=== PATIENT | female | born 1955 | race Caucasian/White ===

== ENCOUNTER 2021-08-12 12:38 | Observation (INO) ==
[2021-08-12] MEDS ORDERED: KETOROLAC TROMETHAMINE 15 MG/ML VIAL IV ONE ×2 (13:02→13:14)
[2021-08-12 13:08] LABS: Basophils # (auto) 0.02 K/uL (0-0.2); Basophils % (auto) 0.3 %; Eosinophils # (auto) 0.02 K/uL (0-0.5); Eosinophils % (auto) 0.3 %; Hematocrit (blood only) 42.1 % (37-47); Hemoglobin 14.5 g/dL (12.0-16.0); Immature Granulocytes # (auto) 0.01 K/uL (0.00-0.02); Immature Granulocytes % (auto) 0.2 %; Lymphocytes # (auto) 0.69 K/uL (1.2-3.4); Lymphocytes % (auto) 10.7 %; Mean Corpuscular Hgb Conc 34.4 g/dL (32-36); Mean Corpuscular Volume 92.9 fL (80-100); Mean Platelet Volume 11.2 fL (7.4-10.4); Monocytes # (auto) 0.08 K/uL (0.11-0.59); Monocytes % (auto) 1.2 %; Neutrophils # (auto) 5.64 K/uL (1.4-6.5); Neutrophils % (auto) 87.3 %; Platelet Count 174 K/uL (130-400); RDW Coefficient of Variation 12.2 % (11.5-14.5); RDW Standard Deviation 41.1 fL (36.4-46.3); Red Blood Count 4.53 M/uL (4.2-5.4); White Blood Count 6.46 K/uL (4.8-10.8)
--- NOTE | 2021-08-12 13:08 | Emergency Department Note ---
Impression & Plan Chest pain, RBBB ED Provider Note NAME: CHRISTAL GARCIA AGE: 66 SEX: F : 1955 ARRIVES VIA: Ambulance INFORMANT: Patient ED PROVIDER(S): Joce Meeks DO CHIEF COMPLAINT: chest pain HPI: Patient is a 66-year-old female with a past medical history of hypertension and hyperlipidemia that presents to the ER postop from general anesthesia from [facility] outpatient [facility]. She was having right foot surgery which include a cyst removal and some removal of some bone spurs. When she woke up she was having some sharp midsternal chest pain. She denies any shortness of breath arm or jaw pain. She was given nitro and improved. She was also given some fentanyl which helped out as well. Currently only a 2-3 out of 10. Denies any belly pain, nausea, vomiting, or diarrhea. No dysuria, urgency, or frequency. No other exacerbating or remitting factors. She follows with [facility] cardiology previously. ROS: See above HPI for pertinent positives & negatives. A total of 10 systems reviewed and were otherwise negative. PAST MEDICAL HISTORY:See Below PAST SURGICAL HISTORY:See Below FAMILY HISTORY:See Below SOCIAL HISTORY:See Below HOME MEDICATIONS:See Below ALLERGIES:See Below VITALS:See Below PHYSICAL EXAMINATION: GENERAL: Sitting up in bed, alert, well appearing, well nourished, no distress, non-toxic EYE EXAM: normal conjunctiva. PERRL and EOM's grossly intact. OROPHARYNX: no exudate, no erythema, lips, buccal mucosa, and tongue normal and mucous membranes are moist NECK: supple, no nuchal rigidity, no adenopathy, non-tender CHEST: Reproducible midsternal chest pain LUNGS: Clear to auscultation. Normal chest wall mechanics HEART: no murmurs, S1 normal and S2 normal ABDOMEN: abdomen soft, non-tender, normo-active bowel sounds, no masses, no rebound or guarding. UPPER EXTREMITIES: upper extremities are grossly normal. LOWER EXTREMITIES: No pitting edema. NEURO EXAM: Normal sensorium, cranial nerves II-XII grossly intact, normal speech, no gross weakness of arms, no gross weakness of legs. MEDICAL DECISION MAKING: Patient is a 66-year-old female who presents ER for chest pain. From general anesthesia. She was referred in from [facility] anesthesiologist. IV was established blood work was obtained. Labs showed no significant leukocytosis or anemia. BMP with a mild hypokalemia 3.3. LFTs bilirubin and troponin was negative. Lipase was unremarkable. Covid was negative. Chest x- ray was clean. EKG shows a right bundle. She was given nitro which helped improve her symptoms prior to arrival. She was given aspirin. In the ER she was given morphine. Repeat EKGs were unremarkable. She was updated bedside. Discussed the hospitalist for further evaluation. Triage Nursing notes reviewed. Limited review of prior medical records performed Vital Signs: reviewed and remarkable for no significant abnormalities Differential diagnosis: Differential diagnoses includes but is not limited to acute coronary syndrome, myocardial infarction, pericarditis, pulmonary embolus, aortic dissection, pneumonia, pneumothorax, musculoskeletal, shingles, esophageal. ER treatment provided: See below Diagnostics interpreted by me: ECG: Sinus rhythm rate of 68 Normal axis T wave inversion with ST wave changes in lead III and aVF Right bundle branch block Nonspecific ST wave changes V1 through V4 QTC 508 EKG #2 Sinus rhythm rate [address] wave changes in the inferior leads Right bundle branch block Nonspecific ST wave changes V1 through V4 No significant change from previous Cardiac Monitoring: An order was placed for continuous cardiac monitoring. The monitor shows a rate of 70 with sinus rhythm. Laboratory studies: As stated above and show below. Imaging studies: Chest x-ray was clean Consultation(s): none Procedures: none Critical Care: None Past Med/Surg History Medical History Depression with anxiety GERD (gastroesophageal reflux disease) History of arteriovenous malformation (AVM) HLD (hyperlipidemia) HTN (hypertension) CHUCKY (obstructive sleep apnea) Osteopenia Pre-diabetes RBBB Surgical History History of appendectomy History of arthroscopic knee surgery History of bunionectomy History of History of carpal tunnel release History of laparoscopic cholecystectomy History of tonsillectomy History of tubal ligation Family History Father Prostate cancer Myocardial infarction Mother , 53 Colorectal cancer Brother Diabetes Social History Smoking Status: Never smoker Hx Alcohol Use: No Hx Substance Use: No Preferred Language: [place] marital status: Feels Safe at Home: Yes Allergies Allergies Allergy/AdvReac Type Severity Reaction Status Date / Time naproxen [From Aleve] Allergy Severe edema to Verified 08/12/21 15:52 face/lips acetaminophen [From Vicodin] Allergy Mild n/v Verified 08/12/21 15:52 hydrocodone [From Vicodin] Allergy Mild n/v Verified 08/12/21 15:52 Sulfa (Sulfonamide Allergy Mild rash Verified 08/12/21 15:52 Antibiotics) metoclopramide [From Reglan] AdvReac Mild extreme Verified 08/12/21 15:52 anxiety montelukast AdvReac Mild drowsy Verified 08/12/21 15:52 azithromycin AdvReac Unknown Verified 08/12/21 15:52 pravastatin AdvReac Unknown Verified 08/12/21 15:52 rofecoxib AdvReac Unknown Verified 08/12/21 15:52 Home Meds Home Medications Medication Instructions Recorded Confirmed aspirin 81 mg tablet,delayed 81 mg PO DAILY 08/12/21 08/12/21 release atenolol 25 mg tablet 25 mg PO DAILY 08/12/21 08/12/21 atorvastatin 20 mg tablet 20 mg PO DAILY 08/12/21 08/12/21 citalopram 40 mg tablet 40 mg PO DAILY 08/12/21 08/12/21 esomeprazole magnesium 40 mg 40 mg PO DAILY 08/12/21 08/12/21 capsule,delayed release (Nexium) finasteride 5 mg tablet 2.5 mg PO DAILY 08/12/21 08/12/21 hydrochlorothiazide 50 mg tablet 50 mg PO DAILY 08/12/21 08/12/21 oxycodone-acetaminophen 5 mg-325 1 tab PO DAILY PRN 08/12/21 08/12/21 mg tablet Results & Data (ED) Vital Signs Vital Signs - 24 hr 08/12/21 12:26 08/12/21 12:57 08/12/21 13:04 Temperature 36.6 C Temperature Source Oral Pulse Rate 69 67 Pulse Rate [Right Finger] 63 Pulse Rate from SpO2 Sensor 67 Respiratory Rate 17 15 12 Respiratory Effort / Characteristics Non-Labored Spontaneous Respiratory Depth Normal Blood Pressure 132/77 Blood Pressure [Left Arm] 121/73 Blood Pressure Mean 95 Blood Pressure Mean [Left Arm] 89 Blood Pressure Position Lying Blood Pressure Position [Left Arm] Sitting Pulse Oximetry 97 96 95 Oxygen Delivery Method Room Air Room Air Sepsis Recent Fever Within 48 Hours No Sepsis New/Unexplained Change in Mental Status N/A Sepsis Action Taken by Nursing No Action Required 08/12/21 13:10 08/12/21 13:20 08/12/21 13:30 Temperature Temperature Source Pulse Rate 64 73 72 Pulse Rate [Right Finger] Pulse Rate from SpO2 Sensor 64 74 71 Respiratory Rate 15 15 16 Respiratory Effort / Characteristics Respiratory Depth Blood Pressure Blood Pressure [Left Arm] Blood Pressure Mean Blood Pressure Mean [Left Arm] Blood Pressure Position Blood Pressure Position [Left Arm] Pulse Oximetry 96 93 97 Oxygen Delivery Method Sepsis Recent Fever Within 48 Hours Sepsis New/Unexplained Change in Mental Status Sepsis Action Taken by Nursing 08/12/21 13:40 08/12/21 13:50 08/12/21 14:00 Temperature Temperature Source Pulse Rate 71 66 64 Pulse Rate [Right Finger] Pulse Rate from SpO2 Sensor 71 67 64 Respiratory Rate 14 13 12 Respiratory Effort / Characteristics Respiratory Depth Blood Pressure Blood Pressure [Left Arm] Blood Pressure Mean Blood Pressure Mean [Left Arm] Blood Pressure Position Blood Pressure Position [Left Arm] Pulse Oximetry 98 96 96 Oxygen Delivery Method Sepsis Recent Fever Within 48 Hours Sepsis New/Unexplained Change in Mental Status Sepsis Action Taken by Nursing 08/12/21 14:10 08/12/21 14:20 Temperature Temperature Source Pulse Rate 70 68 Pulse Rate [Right Finger] Pulse Rate from SpO2 Sensor 71 67 Respiratory Rate 10 L 13 Respiratory Effort / Characteristics Respiratory Depth Blood Pressure Blood Pressure [Left Arm] Blood Pressure Mean Blood Pressure Mean [Left Arm] Blood Pressure Position Blood Pressure Position [Left Arm] Pulse Oximetry 94 93 Oxygen Delivery Method Sepsis Recent Fever Within 48 Hours Sepsis New/Unexplained Change in Mental Status Sepsis Action Taken by Nursing Laboratory Data Result diagrams: 08/12/21 13:00 08/12/21 13:00 Lab Results 08/12/21 08/12/21 08/12/21 Range/Units 13:00 13:00 13:00 WBC 6.46 (4.8-10.8) K/uL RBC 4.53 (4.2-5.4) M/uL Hgb 14.5 (12.0-16.0) g/dL Hct 42.1 (37-47) % MCV 92.9 (80-100) fL MCH 32.0 (25-34) pg MCHC 34.4 (32-36) g/dL RDW Std Deviation 41.1 (36.4-46.3) fL RDW Coeff of Sil 12.2 (11.5-14.5) % Plt Count 174 (130-400) K/uL MPV 11.2 H (7.4-10.4) fL Immature Gran % (Auto) 0.2 % Neut % (Auto) 87.3 % Lymph % (Auto) 10.7 % [place] % (Auto) 1.2 % Eos % (Auto) 0.3 % Baso % (Auto) 0.3 % Neut # (Auto) 5.64 (1.4-6.5) K/uL Lymph # (Auto) 0.69 L (1.2-3.4) K/uL [place] # (Auto) 0.08 L (0.11-0.59) K/uL Eos # (Auto) 0.02 (0-0.5) K/uL Baso # (Auto) 0.02 (0-0.2) K/uL Immature Gran # (Auto) 0.01 (0.00-0.02) K/uL D-Dimer 580 H* (0-500) ug/L FEU Sodium 138 (136-145) mmol/L Potassium 3.3 L (3.5-5.1) mmol/L Chloride 105 (98-107) mmol/L Carbon Dioxide 27 (21-32) mmol/L Anion Gap 6.0 (3-11) BUN 14 (7-18) mg/dl Creatinine 0.82 (0.6-1.2) mg/dl Est Cr Clr Drug Dosing 77.6 ml/min Est GFR ( Amer) 87.6 ml/min Est GFR (Non-Af Amer) 75.6 ml/min BUN/Creatinine Ratio 17.3 (10-20) Glucose 146 H (70-99) mg/dl Calcium 9.4 (8.5-10.1) mg/dl Total Bilirubin 0.7 (0.2-1) mg/dl AST 44 H (15-37) U/L ALT 48 (12-78) Alkaline Phosphatase 95 (45-117) U/L Troponin I < 0.015 (0-0.045) ng/ml Total Protein 7.1 (6.4-8.2) gm/dl Albumin 3.4 (3.4-5.0) gm/dl Globulin 3.7 (2.5-4.0) gm/dl Albumin/Globulin Ratio 0.9 (0.9-2) Lipase 280 (73-393) U/L Administered Medications Discontinued Medications Famotidine (Famotidine 20mg/5ml Iv Push) 20 mg IV ONE STA Stop: 08/12/21 14:52 Last Admin: 08/12/21 15:05 Dose: 20 mg Documented by: [id number] Ioversol (Optiray 320 125ml) 120 ml IV ONCE ONE Stop: 08/12/21 17:14 Last Admin: 08/12/21 17:13 Dose: 120 ml Documented by: [id number] Ketorolac Tromethamine (Ketorolac Tromethamine 15 Mg/Ml Vial) 15 mg IV NOW ONE Stop: 08/12/21 13:03 Last Admin: 08/12/21 13:14 Dose: 15 mg Documented by: [id number] Ketorolac Tromethamine (Ketorolac Tromethamine 15 Mg/Ml Vial) 10 mg IV NOW ONE Stop: 08/12/21 13:15 Last Admin: 08/12/21 13:16 Dose: Not Given Documented by: [id number] Morphine Sulfate (Morphine Sulfate 4 Mg/Ml 1 Ml Carp\Vial) 4 mg IV NOW STA Stop: 08/12/21 13:47 Last Admin: 08/12/21 14:03 Dose: 4 mg Documented by: [id number] Potassium Chloride (Potassium Chloride Crtab 20 Meq Tabcr) 40 meq PO NOW STA Stop: 08/12/21 14:52 Last Admin: 08/12/21 15:05 Dose: 40 meq Documented by: [id number] Imaging Data Radiologist's Impression: Chest X-Ray 08/12/21 13:03 XR chest 1V portable HISTORY: Atypical Chest Pain COMPARISON: None. FINDINGS: The lungs are clear. Cardiac silhouette is normal in size. No pleural effusions. No pneumothorax. IMPRESSION: No acute process. ACT 112: Negative or not required by law. Electronically signed by: Hans Bautista M.D. 08/12/2021 1:49 PM Discharge Plan Visit Data Chief Complaint: Chest Pain Stated Complaint: chest pain ED Provider: Joce Meeks Discharge Problem: Chest pain, RBBB Patient Disposition: Admitted As Inpatient Discharge Instructions Interventions: ED Discharge Assessment Last Done: 08/12/21 17:49 Discharge Problem: Chest pain Qualifiers: Chest pain type: unspecified Qualified Code(s): R07.9 - Chest pain, unspecified
[2021-08-12 13:28] LABS: Alanine Aminotransferase 48 (12-78); Albumin Level 3.4 gm/dl (3.4-5.0); Aspartate Aminotransferase 44 U/L (15-37); BUN Creatinine Ratio 17.3 (10-20); Blood Urea Nitrogen 14 mg/dl (7-18); Calcium 9.4 mg/dl (8.5-10.1); Carbon Dioxide 27 mmol/L (21-32); Chloride 105 mmol/L (98-107); Creatinine Clr Calc Pharmacy 77.6 ml/min; Est GFR (African American) 87.6 ml/min; Est GFR (Non-African American) 75.6 ml/min; Glucose 146 mg/dl (70-99); Lipase 280 U/L (73-393); Potassium 3.3 mmol/L (3.5-5.1); Sodium 138 mmol/L (136-145)
[2021-08-12 13:33] LABS: Albumin Globulin Ratio 0.9 (0.9-2); Alkaline Phosphatase 95 U/L (45-117); Bilirubin,Total 0.7 mg/dl (0.2-1); Globulin 3.7 gm/dl (2.5-4.0); Total Protein 7.1 gm/dl (6.4-8.2); Troponin I < 0.015 ng/ml (0-0.045)
[2021-08-12] MEDS ORDERED: MoRPHine SULFATE 4 MG/ML 1 ML CARP\\VIAL IV STA (13:46)
--- NOTE | 2021-08-12 13:50 | XRay Report ---
XR chest 1V portable HISTORY: Atypical Chest Pain COMPARISON: None. FINDINGS: The lungs are clear. Cardiac silhouette is normal in size. No pleural effusions. No pneumot horax. IMPRESSION: No acute process. ACT 112: Negative or not required by law. Electronically signed by: Hans Bautista M.D. 08/12/2021 1:49 PM
[2021-08-12] MEDS ORDERED: FAMOTIDINE 20MG/5ML IV PUSH IV STA (14:51)
[2021-08-12] MEDS ORDERED: POTASSIUM CHLORIDE CRTAB 20 MEQ TABCR PO STA (14:51)
--- NOTE | 2021-08-12 15:16 | History & Physical Report ---
Date of Service August 12, 2021 Assessment & Plan (1) Chest pain: (2) RBBB: (3) HTN (hypertension): (4) HLD (hyperlipidemia): (5) CHUCKY (obstructive sleep apnea): (6) Pre-diabetes: Plan: This is a 66-year-old female who has significant past medical history of HTN, HLD, prediabetes, CHUCKY, GERD, depression with anxiety, history of AV malformation status post surgical fixation who presents to ED secondary to chest pain x3 hours Chest Pain - uncertain etiology, must rule out ACS/PE, possibly MSK as sx reproducible, possible GI component as slight epigastrum discomfort as well Known RBBB serial troponins, echo given risk factors consult cardiology monitor tele give Pepcid 20mg IV x 1 now obtain d-dimer - elevated at 580, will obtain CTA chest Kpad for discomfort no prior hx of cardiac disease, last stress test 2018 Hypokalemia replace repeat in a.m. S/P R foot surgery by Dr. Helton POD #0 Nonweightbearing to right lower extremity, elevate extremity, ice Percocet as needed for pain control Neurovascular checks every 4 Hx of COVID 19 07/2021 sx resolved, sarscov2 negative HTN Blood pressure stable continue atenolol and hydrochlorothiazide Monitor HLD Continue statin CHUCKY CPAP at HS [id number] Pre DM a1c in a.m. Last A1c 6.0 on 03/2021 Monitor fasting glucose, if remains significantly elevated will add NovoLog coverage Prolonged QTc Continue to monitor EKG Avoid QTC prolonging agents Patient is currently on citalopram DVT ppx: SCD/TEDS for now given foot surgery today, consider chemical prophylaxis tomorrow if to remain hospitalized Dispo:tele PCP: Candace Davis PA-C FULL CODE Pt was seen and examined in collaboration with Dr. Rogers, please see addendum The chart was completed utilizing [employer] Speech voice recognition software. Grammatical errors, random word insertions, pronoun errors, and incomplete sentences are an occasional consequence of this system due to software limitations, ambient noise, and hardware issues. Any formal questions or concerns about the content, text, or information contained within the body of this dictation should be directly addressed to the provider for clarification. History of Present Illness Chief Complaint: Chest pain x 3 hour. Primary Care Provider: Candace Davis PA-C This is a 66-year-old female who has significant past medical history of HTN, HLD, prediabetes, CHUCKY, GERD, depression with anxiety, history of AV malformation status post surgical fixation who presents to ED secondary to chest pain x3 hours. Her is at bedside. Of significance patient underwent right foot surgery today by Dr. Helton. She had surgery at outpatient surgery center [facility]. She underwent right foot tenosynovectomy with cyst removal and bone spurs. She tolerated the procedure well; however, upon awakening from anesthesia developed headache and substernal chest pain. She described a substernal chest pain as a stab, was nonradiating, improved with nitro x1, gradually got worse in a crescendo-like pattern, nothing made symptoms worse including movement or deep breathing. Her symptoms were not associated with diaphoresis, nausea, shortness of breath or palpitations. She has never experienced anything like this in the past. She does have prior episodes of right-sided chest discomfort with radiation to jaw, neck and right shoulder. She did undergo stress testing in 2019 which was negative. She states her sales branch manager told her if symptoms were to persist she should have a heart cath. She does have prior history of acid reflux, but this does not feel similar. She does admit prior to surgery to getting dyspneic with exertion and climbing 1 flight of steps, but no chest pain. Of significance she did recently have COVID-19 in July 2021. She was diagnosed on 07/01/2021 and her symptoms are completely resolved. Currently she continues to complain of residual substernal chest pain, 2 out of 10. She did receive IV morphine and IV Toradol in ED without any relief. She also complains of, "stomach growling." She denies any fever, chills, sweats, lightheadedness, dizziness, shortness of breath, palpitations, cough, URI symptoms, nausea, vomiting, abdominal pain. Prior to surgery she denies of difficulty with moving bowels or passing urine. Currently she is to remain nonweightbearing of the right lower extremity and elevate lower extremity as much as possible. In ED patient remained hemodynamically stable. Her initial troponin was unremarkable. Her initial EKG revealed normal sinus rhythm at a rate of 68 bpm, right bundle branch block and T wave inversion in lead III and aVF. Allergies Allergy/AdvReac Type Severity Reaction Status Date / Time naproxen [From Aleve] Allergy Severe edema to Verified 08/12/21 15:52 face/lips acetaminophen [From Vicodin] Allergy Mild n/v Verified 08/12/21 15:52 hydrocodone [From Vicodin] Allergy Mild n/v Verified 08/12/21 15:52 Sulfa (Sulfonamide Allergy Mild rash Verified 08/12/21 15:52 Antibiotics) metoclopramide [From Reglan] AdvReac Mild extreme Verified 08/12/21 15:52 anxiety montelukast AdvReac Mild drowsy Verified 08/12/21 15:52 azithromycin AdvReac Unknown Verified 08/12/21 15:52 pravastatin AdvReac Unknown Verified 08/12/21 15:52 rofecoxib AdvReac Unknown Verified 08/12/21 15:52 Home Medications Medication Instructions Recorded Confirmed Type aspirin 81 mg tablet,delayed 81 mg PO DAILY 08/12/21 08/12/21 History release atenolol 25 mg tablet 25 mg PO DAILY 08/12/21 08/12/21 History atorvastatin 20 mg tablet 20 mg PO DAILY 08/12/21 08/12/21 History citalopram 40 mg tablet 40 mg PO DAILY 08/12/21 08/12/21 History esomeprazole magnesium 40 mg 40 mg PO DAILY 08/12/21 08/12/21 History capsule,delayed release (Nexium) finasteride 5 mg tablet 2.5 mg PO DAILY 08/12/21 08/12/21 History hydrochlorothiazide 50 mg tablet 50 mg PO DAILY 08/12/21 08/12/21 History oxycodone-acetaminophen 5 mg-325 1 tab PO DAILY PRN 08/12/21 08/12/21 History mg tablet Past Med/Surg History Medical History Depression with anxiety GERD (gastroesophageal reflux disease) History of arteriovenous malformation (AVM) HLD (hyperlipidemia) HTN (hypertension) CHUCKY (obstructive sleep apnea) Osteopenia Pre-diabetes RBBB Surgical History History of appendectomy History of arthroscopic knee surgery History of bunionectomy History of History of carpal tunnel release History of laparoscopic cholecystectomy History of tonsillectomy History of tubal ligation Family History Father Prostate cancer Myocardial infarction Mother , 53 Colorectal cancer Brother Diabetes Social History Smoking Status: Never smoker Hx Alcohol Use: No Hx Substance Use: No Preferred Language: Kiswahili marital status: Feels Safe at Home: Yes Review of Systems 2 Review of Systems: All systems reviewed & are unremarkable except as noted in HPI & below Physical Exam Physical Exam: Constitutional: WD/WN, vitals as above, NAD, sitting up in bed, drowsy, pleasant, conversing easily Head: Normocephalic, Atraumatic Eyes: PERRL, conjunctivae normal, anicteric sclerae ENMT: external ear and nose normal, oropharynx normal Neck: trachea midline, no thyromegaly normal visual inspection Respiratory: normal respiratory effort, lungs clear to auscultation, no wheeze, rales, rhonchi. Normal insp/exp effort, no accessory muscle use Cardiovascular: RRR, no murmur, no edema Vessels: no JVD or carotid bruit Chest: normal inspection of chest, + pain to palpation along sternum and epigastrium which is similar to pain she is experiencing Abdomen: normal bowel sounds, soft, nontender, no hepatosplenomegaly Musculoskeletal: no cyanosis or clubbing, RLE spint/dressing in place, NVI distally, AROM to b/l upper extremity and LLE Skin: no rashes, warm and dry normal turgor Neurologic: PERRL, EOMI, accommodation nl, no face palsy, no dysarthria CN's II-XI intact bilaterally and moves all extremities Psychiatric: A+Ox3, euthymic affect Lymphatic: no cervical or axillary lymphadenopathy : deferred Results & Data Results & Data ([facility]) Vital Signs (Past 12 Hours) Vital Signs Temp Pulse Pulse Resp BP BP Pulse Ox 08/12/21 14:30 76 13 96 08/12/21 14:20 68 13 93 08/12/21 14:10 70 10 L 94 08/12/21 14:00 64 12 96 08/12/21 13:50 66 13 96 08/12/21 13:40 71 14 98 08/12/21 13:30 72 16 97 08/12/21 13:20 73 15 93 08/12/21 13:10 64 15 96 08/12/21 13:04 67 12 95 08/12/21 12:57 36.6 C 69 15 132/77 96 08/12/21 12:26 63 17 121/73 97 Diagnostic Findings Chest X-Ray 08/12/21 13:03 XR chest 1V portable HISTORY: Atypical Chest Pain COMPARISON: None. FINDINGS: The lungs are clear. Cardiac silhouette is normal in size. No pleural effusions. No pneumothorax. IMPRESSION: No acute process. ACT 112: Negative or not required by law. Electronically signed by: Hans Bautista M.D. 08/12/2021 1:49 PM Medications Administered Medication List Discontinued Medications Famotidine (Famotidine 20mg/5ml Iv Push) 20 mg IV ONE STA Stop: 08/12/21 14:52 Last Admin: 08/12/21 15:05 Dose: 20 mg Documented by: [id number] Ketorolac Tromethamine (Ketorolac Tromethamine 15 Mg/Ml Vial) 15 mg IV NOW ONE Stop: 08/12/21 13:03 Last Admin: 08/12/21 13:14 Dose: 15 mg Documented by: [id number] Ketorolac Tromethamine (Ketorolac Tromethamine 15 Mg/Ml Vial) 10 mg IV NOW ONE Stop: 08/12/21 13:15 Last Admin: 08/12/21 13:16 Dose: Not Given Documented by: [id number] Morphine Sulfate (Morphine Sulfate 4 Mg/Ml 1 Ml Carp\\Vial) 4 mg IV NOW STA Stop: 08/12/21 13:47 Last Admin: 08/12/21 14:03 Dose: 4 mg Documented by: [id number] Potassium Chloride (Potassium Chloride Crtab 20 Meq Tabcr) 40 meq PO NOW STA Stop: 08/12/21 14:52 Last Admin: 08/12/21 15:05 Dose: 40 meq Documented by: [id number] ECG Rate (beats per minute): 68 Rhythm: normal sinus Findings: + RBBB and + prolonged QT COVID-19 Results Results COVID-19 Adm Lab Results: RBC 4.53 M/uL (4.2-5.4) 08/12/21 WBC 6.46 K/uL (4.8-10.8) 08/12/21 Hgb 14.5 g/dL (12.0-16.0) 08/12/21 Hct 42.1 % (37-47) 08/12/21 Plt Count 174 K/uL (130-400) 08/12/21 Neutrophils (%) (Auto) 87.3 % 08/12/21 Lymphocytes (%) (Auto) 10.7 % 08/12/21 Monocytes # (Auto) 0.08 K/uL (0.11-0.59) L 08/12/21 Eosinophils # (Auto) 0.02 K/uL (0-0.5) 08/12/21 Immature Granulocyte % (Auto) 0.2 % 08/12/21 Neutrophils # (Auto) 5.64 K/uL (1.4-6.5) 08/12/21 Lymphocytes # (Auto) 0.69 K/uL (1.2-3.4) L 08/12/21 Monocytes # (Auto) 0.08 K/uL (0.11-0.59) L 08/12/21 Eosinophils # (Auto) 0.02 K/uL (0-0.5) 08/12/21 Basophils # (Auto) 0.02 K/uL (0-0.2) 08/12/21 Immature Granulocyte # (Auto) 0.01 K/uL (0.00-0.02) 08/12/21 Na 138 mmol/L (136-145) 08/12/21 K 3.3 mmol/L (3.5-5.1) L 08/12/21 Cl 105 mmol/L (98-107) 08/12/21 CO2 27 mmol/L (21-32) 08/12/21 Anion Gap 6.0 (3-11) 08/12/21 BUN 14 mg/dl (7-18) 08/12/21 Creatinine 0.82 mg/dl (0.6-1.2) 08/12/21 BUN/Creatinine Ratio 17.3 (10-20) 08/12/21 Glucose Level 146 mg/dl (70-99) H 08/12/21 Ca 9.4 mg/dl (8.5-10.1) 08/12/21 Total Bilirubin 0.7 mg/dl (0.2-1) 08/12/21 AST/SGOT 44 U/L (15-37) H 08/12/21 ALT/SGPT 48 (12-78) 08/12/21 Alkaline Phosphatase 95 U/L (45-117) 08/12/21 Total Protein 7.1 gm/dl (6.4-8.2) 08/12/21 Albumin 3.4 gm/dl (3.4-5.0) 08/12/21 Globulin 3.7 gm/dl (2.5-4.0) 08/12/21 Albumin/Globulin Ratio 0.9 (0.9-2) 08/12/21 Troponin I < 0.015 ng/ml (0-0.045) 08/12/21 D-Dimer 580 ug/L FEU (0-500) H* 08/12/21 SARS-CoV-2, RNA, NAAT NEGATIVE (NEGATIVE) 08/12/21 Chest X-Ray 08/12/21 Code Status & VTE Plan Code Status FULL CODE VTE Prophylaxis Plan VTE Prophylaxis will be ordered: Yes Supervising Physician Co-Signing Physician Notes Attending Addendum: care coordinated with ANAYELI Melo please refer to her notes for full details, I agree with her notes patient seen and examined, records reviewed by myself as well on exam, patient seen resting in bed, comfortable, not in distress States chest pain is much better, very mild No nausea vomiting, shortness of breath, headache, dizziness, fevers or chills no other symptoms VS noted and reviewed oriented x3, not in distress, speaks in sentences with no effort nor accessory muscle use Heart, lungs, abdominal exam not performed as patient is having her echocardiogram no bipedal edema, erythema, warmth no neuro deficits WBC 6.4 Hg 4.5 Crea 0.8 EKG: Nonspecific T wave inversion in the inferior leads, anterior leads QT corrected 508 ASSESSMENT AND PLAN Chest pain, rule out ACS Initial troponin negative EKG initial nonspecific T wave changes in the inferior and anterior leads echo: No left-ventricular wall motion abnormality, EF 65 to 70% grade 1 diastolic dysfunction Serial troponins 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
[2021-08-12 15:27] LABS: D Dimer 580 ug/L FEU (0-500)
--- NOTE | 2021-08-12 17:01 | Cardiology Consultation ---
Date of Consultation August 12, 2021 Assessment & Plan (1) Chest pain: (2) RBBB: (3) HTN (hypertension): (4) Dyslipidemia: (5) GERD (gastroesophageal reflux disease): 66-year-old female presents to the emergency department for evaluation of chest discomfort with atypical features. Pain somewhat reproducible on exam. Bedside echocardiogram without regional wall motion abnormality. Her ECG on admission demonstrates a right bundle branch block with inferior T wave abnormality. Echocardiographic images reassuring without evidence of regional wall motion abnormality to suggest ischemia or injury. Her D-dimer is elevated which is not unexpected postoperatively. CT angiogram pending at this time. Reassess troponin in 4-6 hours. Continue aspirin, statin, and beta-ada therapy. N.p.o. except medications after midnight. Maintain telemetry monitoring during hospitalization. History of Present Illness Reason for Consultation: Chest pain Requesting Physician: Jolly German PA-C Attending Physician: Dr. Flores History of Present Illness 66-year-old female present to the emergency department with lower substernal and epigastric discomfort. Patient underwent orthopedic foot surgery earlier today. Upon awakening from general anesthesia she developed a sharp and stabbing pain near her lower sternal border and epigastric region. The pain seemed to radiate under her breasts bilaterally. No associated shortness of breath. The discomfort was reportedly sharp. Treated with sublingual nitroglycerin and transferred to the emergency department for further evaluation. In the ER she was also treated with Toradol, fentanyl, and sublingual nitro. ECG demonstrating sinus rhythm with a right bundle branch block. Inferior T wave inversion noted, however, hypokalemia also present. Currently describes a dull ache. No shortness of breath or diaphoresis. Bedside 2D transthoracic echocardiogram revealing hyperdynamic left ventricular systolic function with normal wall motion. No right ventricular dilatation or dysfunction. No indirect evidence of pulmonary hypertension. Her D-dimer is mildly elevated which is not unexpected postoperatively. CT angiogram of the chest pending at this time. Carries a history of acid reflux and common bile duct stones in the past. Discomfort noted postoperatively dissimilar from prior chest pain and biliary discomfort. Substernal and right-sided chest discomfort evaluated with stress testing in 2019. No evidence of inducible ischemia with that study. In general, patient denies any chest discomfort or unusual shortness of breath with activity or exercise. Denies orthopnea, PND, lower extremity edema, palpitations, lightheadedness, dizziness, syncope, or near syncope. Allergies Allergy/AdvReac Type Severity Reaction Status Date / Time naproxen [From Aleve] Allergy Severe edema to Verified 08/12/21 15:52 face/lips acetaminophen [From Vicodin] Allergy Mild n/v Verified 08/12/21 15:52 hydrocodone [From Vicodin] Allergy Mild n/v Verified 08/12/21 15:52 Sulfa (Sulfonamide Allergy Mild rash Verified 08/12/21 15:52 Antibiotics) metoclopramide [From Reglan] AdvReac Mild extreme Verified 08/12/21 15:52 anxiety montelukast AdvReac Mild drowsy Verified 08/12/21 15:52 azithromycin AdvReac Unknown Verified 08/12/21 15:52 pravastatin AdvReac Unknown Verified 08/12/21 15:52 rofecoxib AdvReac Unknown Verified 08/12/21 15:52 Home Medications Medication Instructions Recorded Confirmed Type aspirin 81 mg tablet,delayed 81 mg PO DAILY 08/12/21 08/12/21 History release atenolol 25 mg tablet 25 mg PO DAILY 08/12/21 08/12/21 History atorvastatin 20 mg tablet 20 mg PO DAILY 08/12/21 08/12/21 History citalopram 40 mg tablet 40 mg PO DAILY 08/12/21 08/12/21 History esomeprazole magnesium 40 mg 40 mg PO DAILY 08/12/21 08/12/21 History capsule,delayed release (Nexium) finasteride 5 mg tablet 2.5 mg PO DAILY 08/12/21 08/12/21 History hydrochlorothiazide 50 mg tablet 50 mg PO DAILY 08/12/21 08/12/21 History oxycodone-acetaminophen 5 mg-325 1 tab PO DAILY PRN 08/12/21 08/12/21 History mg tablet Patient History Medical History Depression with anxiety GERD (gastroesophageal reflux disease) History of arteriovenous malformation (AVM) HLD (hyperlipidemia) HTN (hypertension) CHUCKY (obstructive sleep apnea) Osteopenia Pre-diabetes RBBB Surgical History History of appendectomy History of arthroscopic knee surgery History of bunionectomy History of History of carpal tunnel release History of laparoscopic cholecystectomy History of tonsillectomy History of tubal ligation Family History Father Prostate cancer Myocardial infarction Mother , 53 Colorectal cancer Brother Diabetes Social History Smoking Status: Never smoker Hx Alcohol Use: Yes Hx Substance Use: No Preferred Language: Japanese Communication Ability: Effective Dimensional Engineer Required: No Beliefs That Will Affect Care: None marital status: Current Living Situation: Spouse Other Information That Helps Us Care for You: No Feels Safe at Home: Yes Safety Concerns: Feels Safe At This Time Assistive Devices: Glasses Review of Systems Review of Systems: All systems reviewed & are unremarkable except as noted in Subjective Physical Exam Constitutional: well developed, well nourished and + obese Respiratory: normal respiratory effort; no respiratory distress, no labored breathing and no retractions Auscultation: lungs clear to auscultation bilaterally; no crackles, no rales, no rhonchi and no wheezes Cardiovascular: Rate/Rhythm: regular rate and regular rhythm Heart Sounds: normal S1 and normal S2; no murmur Vessels: radial pulses present; no JVD and no carotid bruit Extremities: no edema Gastrointestinal (Abdomen): Inspection/Auscultation: abdomen normal to inspection and normal bowel sounds; abdomen not distended Percussion/Palpation: + abdomen tender (Epigastric tenderness to palpation) and abdomen soft; no guarding and abdomen not rigid Neurologic: CN's II-XI intact bilaterally and moves all extremities; no focal motor deficits Psychiatric: Orientation: alert and oriented x 3 Results & Data ([facility]) Vital Signs (Past 12 Hours) Vital Signs Temp Pulse Pulse Resp BP BP Pulse Ox 08/12/21 16:38 75 16 95 08/12/21 14:30 76 13 96 08/12/21 14:20 68 13 93 08/12/21 14:10 70 10 L 94 08/12/21 14:00 64 12 96 08/12/21 13:50 66 13 96 08/12/21 13:40 71 14 98 08/12/21 13:30 72 16 97 08/12/21 13:20 73 15 93 08/12/21 13:10 64 15 96 08/12/21 13:04 67 12 95 08/12/21 12:57 36.6 C 69 15 132/77 96 08/12/21 12:26 63 17 121/73 97
[2021-08-12] MEDS ORDERED: OPTIRAY 320 125ml IV ONE (17:13)
--- NOTE | 2021-08-12 17:40 | CT Scan Report ---
CT angio chest PE protocol CT DOSE: 462.87 mGy.cm HISTORY: 66 years-old Female with PE. Acute shortness of breath with chest pain TECHNIQUE: Multiple CTA images of the chest were obtained after the intravenous administration of 120 ml Optiray. Coronal and sagittal MIPS were obtained from the axial data set and were submitted for review. All measurements were obtained according to NASCET criteria. A dose lowering technique was u tilized adhering to the principles of ALARA. COMPARISON: Chest radiograph of same day FINDINGS: CTA: The heart is mildly enlarged. No pericardial effusion. Minimal coronary artery calcifications. Four-v essel morphology of the thoracic aortic arch without aneurysm or dissection. Mild descending thoracic aortic tortuosity. Unremarkable pulmonary artery. Inferior lung bases are only partially imaged. No pulmonary emboli. CT CHEST: Unremarkable thyroid. Ovoid circumscribed 1.2 x 0.9 cm nodule of the prevascular space of the anterio r mediastinum is noted on image 175. No pathologically enlarged paratracheal, subcarinal or hilar lym ph nodes. There are a few calcified nonenlarged bilateral hilar lymph nodes. There is mild mucous plugging of the right lung apex posteriorly with adjacent linear subsegmental co nsolidation. No pneumothorax, pleural effusion or overt pulmonary edema. There are a few scattered th in-walled bilateral pulmonary cysts. The central airways are patent. Calcifications are noted adjacent to the distal esophagus. Unremarkable soft tissues. There is no acu te fracture. IMPRESSION: 1. No pulmonary emboli. 2. Minimal mucus plugging with linear consolidation suggestive of atelectasis versus scarring within the right lung apex. 3. 1.2 x 0.9 cm nodule of the prevascular space of the anterior mediastinum is suggestive of a promin ent lymph node versus ectopic thyroid tissue. ACT 112: Negative or not required by law. The above report was generated using voice recognition software. It may contain grammatical, syntax o r spelling errors. Electronically signed by: Rodo Foster M.D. 08/12/2021 5:38 PM
[2021-08-12] MEDS ORDERED: POLYETHYLENE (MIRALAX) 17 GM PACK PO PRN (17:49)
[2021-08-12] MEDS ORDERED: ALUMINUM/MAGNESIUM SUSP 30 ML UDC PO PRN (17:49)
[2021-08-12] MEDS ORDERED: PROMETHAZINE HCL 6.25 MG in SODIUM CHLORIDE 0.9% 50 ML IV PRN (17:49)
[2021-08-12] MEDS ORDERED: NITROGLYCERIN SL 0.4 MG/TAB TAB SL PRN (17:49)
[2021-08-12] MEDS ORDERED: oxyCODONE/ACETAMINOPHEN 5mg/325mg TAB PO PRN (17:49)
[2021-08-12] MEDS ORDERED: MAGNESIUM HYDROXIDE SUSP 30 ML UDC PO PRN (17:49)
[2021-08-13 05:04] LABS: Hematocrit (blood only) 38.2 % (37-47); Immature Granulocytes # (auto) 0.01 K/uL (0.00-0.02); Immature Granulocytes % (auto) 0.1 %; Lymphocytes # (auto) 0.82 K/uL (1.2-3.4); Lymphocytes % (auto) 10.7 %; Mean Corpuscular Hemoglobin 31.7 pg (25-34); Mean Corpuscular Volume 93.2 fL (80-100); Mean Platelet Volume 11.7 fL (7.4-10.4); Monocytes # (auto) 0.46 K/uL (0.11-0.59); Neutrophils % (auto) 83.2 %; Platelet Count 150 K/uL (130-400); RDW Coefficient of Variation 12.2 % (11.5-14.5); RDW Standard Deviation 41.2 fL (36.4-46.3); White Blood Count 7.69 K/uL (4.8-10.8)
[2021-08-13 05:37] LABS: BUN Creatinine Ratio 24.6 (10-20); Calcium 8.7 mg/dl (8.5-10.1); Est GFR (African American) 91.7 ml/min; Est GFR (Non-African American) 79.1 ml/min; Potassium 3.5 mmol/L (3.5-5.1)
[2021-08-13 05:50] LABS: Magnesium 2.2 mg/dl (1.8-2.4)
[2021-08-13 07:22] LABS: Estimated Average Glucose 123 mg/dl; Hemoglobin A1C 5.9 % (4.5-5.6)
[2021-08-13] MEDS ORDERED: ASPIRIN 81 MG ECTAB PO SCH (09:00)
[2021-08-13] MEDS ORDERED: FINASTERIDE 5 MG TAB PO SCH (09:00)
[2021-08-13] MEDS ORDERED: ATORVASTATIN 20 MG TAB PO SCH ×2 (09:00→21:00)
[2021-08-13] MEDS ORDERED: CITALOPRAM 40 MG TAB PO SCH (09:00)
[2021-08-13] MEDS ORDERED: PANTOprazole 40 MG TAB PO SCH (09:00)
[2021-08-13] MEDS ORDERED: ATENOLOL 25 MG TABLET PO SCH (09:00)
[2021-08-13] MEDS ORDERED: hydroCHLOROthiazide 25 MG TAB PO SCH (09:00)
--- NOTE | 2021-08-13 09:44 | Hospitalist Progress Note ---
Date of Service August 13, 2021 Assessment & Plan (1) Chest pain: (2) RBBB: (3) HTN (hypertension): (4) HLD (hyperlipidemia): (5) CHUCKY (obstructive sleep apnea): (6) Pre-diabetes: Plan: per ANAYELI Jolly [place]'ramón notes with addendum: This is a 66-year-old female who has significant past medical history of HTN, HLD, prediabetes, CHUCKY, GERD, depression with anxiety, history of AV malformation status post surgical fixation who presents to ED secondary to chest pain x3 hours Chest Pain - uncertain etiology, must rule out ACS/PE, possibly MSK as sx reproducible, possible GI component as slight epigastrum discomfort as well Known RBBB serial troponins, echo given risk factors consult cardiology monitor tele give Pepcid 20mg IV x 1 now obtain d-dimer - elevated at 580, will obtain CTA chest Kpad for discomfort no prior hx of cardiac disease, last stress test 08/13 troponin x 3 negative echo: no left wall motion abnormalities, EF 60%, Gr 1 diastolic dysfunction repeat ekg this morning Nitropaste ordered continue usual ASA, Atorvastatin, Atenolol awaiting Cardiology eval NPO for now Hypokalemia resolved S/P R foot surgery by Dr. Helton POD #1 Nonweightbearing to right lower extremity, elevate extremity, ice Percocet as needed for pain control Neurovascular checks every 4 Hx of COVID 19 07/2021 sx resolved, sarscov2 negative HTN Blood pressure stable continue atenolol and hydrochlorothiazide Monitor HLD Continue statin CHUCKY CPAP at HS [id number] Pre DM a1c 5.9 FBG 120 Prolonged QTc today 472 DVT ppx: Lovenox 40mg SC Dispo:tele PCP: Candace Davis PA-C FULL CODE plan of care discussed with patient in detail and at length all questions answered she is understanding, agreeable, comfortable with the plan of care Admission and Anticipated Discharge Date Admission Date: August 12, 2021 Subjective ff up for chest pain after foot surgery, etc seen resting in bed, comfortable not in distress had chest pain at 3am which woke her up, given SL nitro, relieved the pain on exam, patient not in distress but does report 2/10 chest discomfort with left shoulder discomfort no dyspnea, nausea/vomiting no other symptoms Review of Systems Review of Systems: all noted and negative except for above Physical Exam Physical Exam: General- oriented x 3, not in distress, speaks in sentences with no effort or accessory muscle use Eyes- anicteric Neck- no JVD Lungs- clear breath sounds bilaterally, no rales/wheezes Heart- normal rate, regular rhythm; no murmurs Abdomen- normal bowel sounds, nondistended, soft, nontender Extremities- no pretibial edema, no calf tenderness RL leg: heavy bandage in place no bleeding, discharge Neuro- alert, oriented x 3; no gross focal neurologic deficits Skin- warm & dry Results & Data Results & Data ([facility]) Vital Signs (Past 12 Hours) Vital Signs Temp Pulse Resp BP BP Pulse Ox 08/13/21 08:29 37.1 C 83 20 145/79 H 91 08/13/21 08:03 75 18 133/80 96 08/13/21 02:44 61 94 08/13/21 01:05 82 121/73 96 08/12/21 23:32 61 121/73 95 08/12/21 23:26 65 121/73 95 all noted and reviewed including below
[2021-08-13] MEDS ORDERED: NITROGLYCERIN 2% OINTMENT 30GM TUBE EXT SCH (09:45)
--- NOTE | 2021-08-13 10:57 | Cardiology Progress Note ---
Date of Service August 13, 2021 Assessment & Plan (1) Chest pain: (2) RBBB: (3) HTN (hypertension): (4) Dyslipidemia: (5) GERD (gastroesophageal reflux disease): Plan: 66-year-old female presents to the emergency department for evaluation of chest discomfort with atypical features. Cardiac enzymes undetectable. Normal wall motion per resting 2D transthoracic echocardiogram. Patient reports recurrent episode of atypical chest discomfort overnight. No dysrhythmias on telemetry. Discuss further with stratification with outpatient stress testing. Patient prefers to have testing performed as an inpatient. Dobutamine stress echo will be performed today for further stratification. No medication changes. Admission and Anticipated Discharge Date Admission Date: August 12, 2021 Subjective Patient seen and examined the bedside. Reports an episode of recurrent chest discomfort overnight. Discomfort was self-limited and occurred at rest while lying supine. No dysrhythmias on telemetry. Cardiac enzymes are undetectable. Review of Systems Review of Systems: All systems reviewed & are unremarkable except as noted in Subjective Physical Exam Constitutional: well developed, well nourished and + obese Respiratory: normal respiratory effort; no respiratory distress, no labored breathing and no retractions Auscultation: lungs clear to auscultation bilaterally; no crackles, no rales, no rhonchi and no wheezes Cardiovascular: Rate/Rhythm: regular rate and regular rhythm Heart Sounds: normal S1 and normal S2; no murmur Vessels: radial pulses present; no JVD and no carotid bruit Extremities: no edema Gastrointestinal (Abdomen): Inspection/Auscultation: abdomen normal to inspection and normal bowel sounds; abdomen not distended Percussion/Palpation: + abdomen tender (Epigastric tenderness to palpation) and abdomen soft; no guarding and abdomen not rigid Neurologic: CN's II-XI intact bilaterally and moves all extremities; no focal motor deficits Psychiatric: Orientation: alert and oriented x 3 Results & Data ([facility]) Vital Signs (Past 12 Hours) Vital Signs Temp Pulse Resp BP BP Pulse Ox 08/13/21 10:26 68 131/75 08/13/21 08:29 37.1 C 83 20 145/79 H 91 08/13/21 08:03 75 18 133/80 96 08/13/21 02:44 61 94 08/13/21 01:05 82 121/73 96 08/12/21 23:32 61 121/73 95 08/12/21 23:26 65 121/73 95
[2021-08-13] MEDS ORDERED: Nursing to Pharmacy Communication SCH (11:00)
[2021-08-13] MEDS: DOBUTamine HCL 12.5 MG/ML 20 ML VIAL IV ONE ×2 (12:44→14:21)
[2021-08-13] MEDS: METOPROLOL TARTRATE 1 MG/ML VIAL IV ONE ×2 (12:44→14:21)
[2021-08-13] MEDS: ATROPINE SULFATE 0.1 MG/ML 10ML SYR IV ONE ×2 (12:44→14:21)
--- NOTE | 2021-08-13 16:11 | Electrocardiogram Report ---
Test Reason : Blood Pressure : / mmHG Vent. Rate : 068 BPM Atrial Rate : 068 BPM P-R Int : 140 ms QRS Dur : 124 ms QT Int : 478 ms P-R-T Axes : 053 -04 006 degrees QTc Int : 508 ms Normal sinus rhythm Right bundle branch block Abnormal ECG No previous ECGs available Confirmed by Yaw Hill ([id number]) on 08/13/2021 4:10:43 PM Referred By: REFERRED SELF Confirmed By:Yaw Hill
--- NOTE | 2021-08-13 16:30 | Electrocardiogram Report ---
Test Reason : Blood Pressure : / mmHG Vent. Rate : 068 BPM Atrial Rate : 068 BPM P-R Int : 150 ms QRS Dur : 124 ms QT Int : 468 ms P-R-T Axes : 059 -02 002 degrees QTc Int : 497 ms Normal sinus rhythm Possible Left atrial enlargement Right bundle branch block Abnormal ECG When compared with ECG of 12-AUG-2021 12:55, (unconfirmed) No significant change was found Confirmed by Yaw Hill ([id number]) on 08/13/2021 4:29:36 PM Referred By: REFERRED SELF Confirmed By:Yaw Hill
--- NOTE | 2021-08-13 16:37 | Discharge Summary ---
Date of Service August 13, 2021 Admission HPI Per Admitting Provider This is a 66-year-old female who has significant past medical history of HTN, HLD, prediabetes, CHUCKY, GERD, depression with anxiety, history of AV malformation status post surgical fixation who presents to ED secondary to chest pain x3 hours. Her is at bedside. Of significance patient underwent right foot surgery today by Dr. Helton. She had surgery at outpatient surgery center [facility] [place]. She underwent right foot tenosynovectomy with cyst removal and bone spurs. She tolerated the procedure well; however, upon awakening from anesthesia developed headache and substernal chest pain. She described a substernal chest pain as a stab, was nonradiating, improved with nitro x1, gradually got worse in a crescendo-like pattern, nothing made symptoms worse including movement or deep breathing. Her symptoms were not associated with diaphoresis, nausea, shortness of breath or palpitations. She has never experienced anything like this in the past. She does have prior episodes of right-sided chest discomfort with radiation to jaw, neck and right shoulder. She did undergo stress testing in 2019 which was negative. 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 She does have prior history of acid reflux, but this does not feel similar. She does admit prior to surgery to getting dyspneic with exertion and climbing 1 flight of steps, but no chest pain. Of significance she did recently have COVID-19 in July 2021. She was diagnosed on 07/01/2021 and her symptoms are completely resolved. Currently she continues to complain of residual substernal chest pain, 2 out of 10. She did receive IV morphine and IV Toradol in ED without any relief. She also complains of, "stomach growling." She denies any fever, chills, sweats, lightheadedness, dizziness, shortness of breath, palpitations, cough, URI symptoms, nausea, vomiting, abdominal pain. Prior to surgery she denies of difficulty with moving bowels or passing urine. Currently she is to remain nonweightbearing of the right lower extremity and elevate lower extremity as much as possible. In ED patient remained hemodynamically stable. Her initial troponin was unremarkable. Her initial EKG revealed normal sinus rhythm at a rate of 68 bpm, right bundle branch block and T wave inversion in lead III and aVF. Admission Exam (Per Admitting) Constitutional Constitutional: WD/WN, vitals as above, NAD, sitting up in bed, drowsy, pleasant, conversing easily Head: Normocephalic, Atraumatic Eyes: PERRL, conjunctivae normal, anicteric sclerae ENMT: external ear and nose normal, oropharynx normal Neck: trachea midline, no thyromegaly normal visual inspection Respiratory: normal respiratory effort, lungs clear to auscultation, no wheeze, rales, rhonchi. Normal insp/exp effort, no accessory muscle use Cardiovascular: RRR, no murmur, no edema Vessels: no JVD or carotid bruit Chest: normal inspection of chest, + pain to palpation along sternum and epigastrium which is similar to pain she is experiencing Abdomen: normal bowel sounds, soft, nontender, no hepatosplenomegaly Musculoskeletal: no cyanosis or clubbing, RLE spint/dressing in place, NVI distally, AROM to b/l upper extremity and LLE Skin: no rashes, warm and dry normal turgor Neurologic: PERRL, EOMI, accommodation nl, no face palsy, no dysarthria CN's II-XI intact bilaterally and moves all extremities Psychiatric: A+Ox3, euthymic affect Lymphatic: no cervical or axillary lymphadenopathy : deferred Discharge Data Consultations 08/12/21 14:20 ED Decision to Admit Stat 08/12/21 15:19 Consult Cardiology Routine Procedures Performed CT angio chest PE protocol CT DOSE: 462.87 mGy.cm HISTORY: 66 years-old Female with PE. Acute shortness of breath with chest pain TECHNIQUE: Multiple CTA images of the chest were obtained after the intravenous administration of 120 ml Optiray. Coronal and sagittal MIPS were obtained from the axial data set and were submitted for review. All measurements were obtained according to NASCET criteria. A dose lowering technique was utilized adhering to the principles of ALARA. COMPARISON: Chest radiograph of same day FINDINGS: CTA: The heart is mildly enlarged. No pericardial effusion. Minimal coronary artery calcifications. Four-vessel morphology of the thoracic aortic arch without aneurysm or dissection. Mild descending thoracic aortic tortuosity. Unremarkable pulmonary artery. Inferior lung bases are only partially imaged. No pulmonary emboli. CT CHEST: Unremarkable thyroid. Ovoid circumscribed 1.2 x 0.9 cm nodule of the prevascular space of the anterior mediastinum is noted on image 175. No pathologically enlarged paratracheal, subcarinal or hilar lymph nodes. There are a few calcified nonenlarged bilateral hilar lymph nodes. There is mild mucous plugging of the right lung apex posteriorly with adjacent linear subsegmental consolidation. No pneumothorax, pleural effusion or overt pulmonary edema. There are a few scattered thin-walled bilateral pulmonary cysts. The central airways are patent. Calcifications are noted adjacent to the distal esophagus. Unremarkable soft tissues. There is no acute fracture. IMPRESSION: 1. No pulmonary emboli. 2. Minimal mucus plugging with linear consolidation suggestive of atelectasis versus scarring within the right lung apex. 3. 1.2 x 0.9 cm nodule of the prevascular space of the anterior mediastinum is suggestive of a prominent lymph node versus ectopic thyroid tissue. ACT 112: Negative or not required by law. Hospital Course (1) Chest pain: (2) RBBB: (3) HTN (hypertension): (4) HLD (hyperlipidemia): (5) CHUCKY (obstructive sleep apnea): (6) Pre-diabetes: per ANAYELI Lake's notes with addendum: This is a 66-year-old female who has significant past medical history of HTN, HLD, prediabetes, CHUCKY, GERD, depression with anxiety, history of AV malformation status post surgical fixation who presents to ED secondary to chest pain x3 hours Chest Pain - uncertain etiology, must rule out ACS/PE, possibly MSK as sx reproducible, possible GI component as slight epigastrum discomfort as well Known RBBB no prior hx of cardiac disease, last stress test 08/13 troponin x 3 negative echo: no left wall motion abnormalities, EF 60%, Gr 1 diastolic dysfunction Eye Care Professional consulted-Dr. Currie Status post dobutamine stress echo: No inducible ischemia CT angiogram of the chest: No PE Atypical chest pain possibly secondary to reflux Patient only takes Nexium three times a week, advised to take daily Follow-up with PCP in [address] chest finding 1.2 x 0.9 cm nodule of the prevascular space of the anterior mediastinum is suggestive of a prominent lymph node versus ectopic thyroid tissue. Please refer to full report in the Ordered Studies section above Further work up, management, and ff up as outpatient Hypokalemia resolved S/P R foot surgery by Dr. Helton POD #1 Nonweightbearing to right lower extremity, elevate extremity, ice Percocet as needed for pain control Neurovascular checks every 4 Hx of COVID 19 07/2021 sx resolved, sarscov2 negative HTN Blood pressure stable continue atenolol and hydrochlorothiazide Monitor HLD Continue statin CHUCKY CPAP at HS [id number] Pre DM a1c 5.9 FBG 120 Prolonged QTc today 472 DVT ppx: Lovenox 40mg SC Dispo:tele PCP: Candace Davis PA-C FULL CODE plan of care discussed with patient in detail and at length all questions answered she is understanding, agreeable, comfortable with the plan of care
--- NOTE | 2021-08-14 16:30 | Electrocardiogram Report ---
Test Reason : Blood Pressure : / mmHG Vent. Rate : 068 BPM Atrial Rate : 068 BPM P-R Int : 140 ms QRS Dur : 126 ms QT Int : 450 ms P-R-T Axes : 055 -04 -05 degrees QTc Int : 478 ms Sinus rhythm with Premature supraventricular complexes Right bundle branch block Minimal voltage criteria for LVH, may be normal variant Abnormal ECG When compared with ECG of 12-AUG-2021 13:29, (unconfirmed) Premature supraventricular complexes are now Present Confirmed by Yaw Hill ([id number]) on 08/14/2021 4:29:50 PM Referred By: REFERRED SELF Confirmed By:Yaw Hill
== END 2021-08-13 15:40 | disposition home or self-care (01) ==
LOC: ED 12:38 → EDINP 12:38 → 2N 08-13 08:25